=== PATIENT | female | born 1975 | race Caucasian/White ===

== ENCOUNTER 2020-06-12 11:52 | Outpatient (CLI) | payer OTHER, SELFPAY ==
--- NOTE | 2020-06-12 11:58 | MM_ITS ---
WS: [id number] SCREENING DIGITAL MAMMOGRAM WITH CAD HISTORY: SCREENING COMPARISON: None available. Bilateral CC and MLO views submitted. Computer aided detection analyzed. Breast composition: The breasts are heterogeneously dense, which may obscure small masses. Scattered ill-defined asymmetries in the LEFT breast central to the nipple and inferior and medial. These may b e superimposed fibroglandular densities which are normal. No prior studies for comparison. RIGHT ayad st is negative. MM/[place] [id number] IMPRESSION: BI-RADS: 0-Incomplete: Need additional imaging evaluation FOLLOW UP: Need Additional Imaging LEFT breast: Spot compression views (CC and MLO). True ML. Ultrasound to follow if abnormality persists.
== END 2020-06-12 11:53 | disposition home or self-care (01) ==
LOC: RADSHAW 11:57
PROVIDERS: PCP Internal Medicine; Visit Provider Internal Medicine
DX: Z12.31 Encounter for screening mammogram for malignant neoplasm of breast (principal); N64.89 Other specified disorders of breast
CPT/HCPCS: 77067

== ENCOUNTER 2020-07-18 09:48 | Outpatient (CLI) | payer OTHER, SELFPAY ==
--- NOTE | 2020-07-18 09:52 | US_ITS ---
WS: [id number] ADDITIONAL VIEWS LEFT MAMMOGRAM LEFT BREAST ULTRASOUND HISTORY: ABNORMAL MAMMOGRAM LEFT COMPARISON: 06/12/2020. LEFT MAMMOGRAM: Spot compression views and true ML. Ovoid mass measuring 11 mm near the 8-9 o'clock axis of the LEFT breast at a middle depth. No additio nal abnormalities. LEFT BREAST ULTRASOUND 2-D and color Doppler imaging submitted. Ultrasound demonstrates a subareolar nodule at 6:00 which is slightly lobulated measuring 4 x 5 x 4 m m. No increased vascularity. At 9:00 2 cm the nipple is an additional hypoechoic mass which may be fibrocystic disease measuring 1 .0 x 0.9 x 0.6 cm. This corresponds to the mammographic abnormality. US/US breast LT limited* [id number] IMPRESSION: BI-RADS: 4-Suspicious Finding-Biopsy Should Be Considered FOLLOW UP: Biopsy Recommended 1. Ultrasound-guided biopsy recommended of the 1.0 cm nodule at 9:[address] Favor this is probably fibrocystic disease but this is not a simple cyst. 2. Additional solid nodule with a maximum diameter 5 mm at 6:00. This is not v isualized mammographically. Recommend ultrasound-guided biopsy also to exclude neoplasm.
== END 2020-07-18 09:49 | disposition home or self-care (01) ==
LOC: RADSHAW 09:51
PROVIDERS: PCP Internal Medicine; Visit Provider Nurse Practitioner Family
DX: R92.8 Other abnormal and inconclusive findings on diagnostic imaging of breast (principal); N63.25 Unspecified lump in the left breast, overlapping quadrants
CPT/HCPCS: 76642; 77065

== ENCOUNTER 2020-08-01 11:59 | Outpatient (CLI) | payer OTHER, SELFPAY ==
--- NOTE | 2020-08-01 12:07 | US_ITS ---
WS: [id number] ULTRASOUND-GUIDED LEFT BREAST BIOPSY CLINICAL INFORMATION: ABNORMAL L MAMMOGRAM COMPARISON: None. FINDINGS: The procedure including risks, benefits, and complications were discussed with the patient who agreed to proceed. Using sterile technique patient was prepped and draped in the usual sterile fashion. Aft er 1% lidocaine utilizing real-time ultrasound guidance 5 14-gauge cores were obtained of the left br east lesion at the 6 o'clock position at the areola. Subsequently a titanium clip was placed in the b iopsy cavity. Next, using ultrasound guidance, the left breast lesion at the 9:00 position 2 cm from the nipple was biopsied. 5 14-gauge cores were obtained. Titanium clip was placed. No immediate applications. Pathology demonstrates A. Breast, left, mass at 6:00, ultrasound-guided biopsy: -Fibroadenoma with calcifications and benign fibrocystic changes. -No malignancy identified. B. Breast, left, mass at 9:00, ultrasound-guided biopsy: -Tubular adenosis with apocrine metaplasia and benign fibrocystic changes. -No malignancy identified. US/[place] [id number] IMPRESSION: 1. Uncomplicated ultrasound-guided left breast biopsy x2. 2. The pathology demonstrates benign fibrocystic changes at both biopsy sites. No malignancy identified. BI-RADS: 2-Benign FOLLOW UP: 1 Year Follow-up RECOMMEND RETURN TO ANNUAL SCREENING MAMMOGRAPHY.
== END 2020-08-01 12:00 | disposition home or self-care (01) ==
LOC: RAD 12:03
PROVIDERS: PCP Internal Medicine; Visit Provider Internal Medicine
DX: R92.8 Other abnormal and inconclusive findings on diagnostic imaging of breast (principal); N63.25 Unspecified lump in the left breast, overlapping quadrants; D24.2 Benign neoplasm of left breast
CPT/HCPCS: 19083; 19084; 88305

== ENCOUNTER → 2021-02-12 10:06 | Outpatient (BNVA) | payer OTHER, SELFPAY | PROVIDERS: PCP Family Medicine; Visit Provider Family Medicine | DX: E03.9 Hypothyroidism, unspecified (principal); E78.5 Hyperlipidemia, unspecified; Z13.6 Encounter for screening for cardiovascular disorders; Z79.899 Other long term (current) drug therapy | CPT/HCPCS: 80053; 80061; 84443; 85025 ==

== ENCOUNTER → 2021-02-13 13:05 | Outpatient (BNVA) | payer OTHER, SELFPAY | PROVIDERS: PCP Family Medicine; Visit Provider Family Medicine | DX: E03.9 Hypothyroidism, unspecified (principal); E78.5 Hyperlipidemia, unspecified; Z13.6 Encounter for screening for cardiovascular disorders; Z79.899 Other long term (current) drug therapy | CPT/HCPCS: 82310; 83970; 84439 ==

== ENCOUNTER → 2021-04-02 08:29 | Outpatient (BNVA) | payer OTHER, SELFPAY | PROVIDERS: PCP Family Medicine; Visit Provider Family Medicine | DX: E03.9 Hypothyroidism, unspecified (principal) | CPT/HCPCS: 84439; 84443 ==

== ENCOUNTER → 2021-07-09 08:51 | Outpatient (BNVA) | payer OTHER, SELFPAY | PROVIDERS: PCP Family Medicine; Visit Provider Family Medicine | DX: E03.9 Hypothyroidism, unspecified (principal); E78.1 Pure hyperglyceridemia | CPT/HCPCS: 80061; 83721; 84443 ==

== ENCOUNTER → 2021-07-16 10:42 | Outpatient (BNVA) | payer OTHER, SELFPAY | PROVIDERS: PCP Family Medicine; Visit Provider Family Medicine | DX: N92.0 Excessive and frequent menstruation with regular cycle (principal); E03.9 Hypothyroidism, unspecified; E78.1 Pure hyperglyceridemia | CPT/HCPCS: 87624 ==

== ENCOUNTER 2021-09-17 07:48 | Outpatient (CLI) | payer OTHER, SELFPAY ==
--- NOTE | 2021-09-17 07:56 | MM_ITS ---
WS: [id number] BILATERAL 3D TOMOSYNTHESIS DIGITAL SCREENING MAMMOGRAPHY WITH CAD CLINICAL INFORMATION: screening mammogram HISTORY: Screening mammogram. No current complaints. COMPARISON: June 12, 2020 TECHNIQUE: Bilateral CC and MLO views. FINDINGS: The breasts are composed of heterogeneous fibroglandular density tissue, which can limit the detectio n of small underlying mass lesions. Biopsy markers LEFT breast from prior biopsy August 01, 2020. A few punctate calcifications. No suspicious mass, asymmetry, calcifications, or architectural distorti on. No evidence of malignancy. MM/[place] [id number] IMPRESSION: BI-RADS: 2-Benign FOLLOW UP: 1 Year Follow-up Recommend return to annual screening mammography.
== END 2021-09-17 07:49 | disposition home or self-care (01) ==
PROVIDERS: PCP Family Medicine; Visit Provider Family Medicine
DX: Z12.31 Encounter for screening mammogram for malignant neoplasm of breast (principal)
CPT/HCPCS: 77063; 77067

== ENCOUNTER 2021-10-08 07:28 | Outpatient (CLI) | payer OTHER, SELFPAY ==
--- NOTE | 2021-10-08 08:00 | US_ITS ---
WS: [id number] TRANSABDOMINAL PELVIC AND TRANSVAGINAL PELVIC ULTRASOUND HISTORY: menorrhagia COMPARISON: None available. Uterus: 8.5 cm x 6.0 cm x 4.9 cm. Normal size anteverted uterus. Shadowing from the uterus obscuring portions of the myometrium . Fibroid suspected in the posterior myometrium measuring 1.7 x 2.0 x 2.3 cm. There is an additional fibroid measuring 1.4 x 1.4 x 2.0 cm towards the posterior inferior endome trium. Endometrium: 1.7 cm. Heterogeneous appearance of the endometrium. There is a bulbous appearance towar ds the fundus of the uterus. There are a few calcifications present. The entire endometrium appears h eterogeneous. No discrete well-formed mass. Right ovary: 2.0 cm x 1.8 cm x 1.1 cm. Poorly visualized ovary. No abnormality identified. Left ovary: 2.3 cm x 1.9 cm x 1.3 cm. Normal. No abnormality. No free fluid. US/US pelvic with transvaginal IMPRESSION: 1. Abnormal endometrium. Heterogeneous, mildly enlarged endometrium with no di screte mass. Recommend hysteroscopy and biopsy. Early endometrial neoplasm is n ot excluded. 2. Heterogeneous uterus. Several fibroids are identified.
== END 2021-10-08 07:29 | disposition home or self-care (01) ==
PROVIDERS: PCP Family Medicine; Visit Provider Family Medicine
DX: N92.0 Excessive and frequent menstruation with regular cycle (principal); D25.9 Leiomyoma of uterus, unspecified
CPT/HCPCS: 76830; 76856

== ENCOUNTER → 2022-01-14 09:45 | Outpatient (BNVA) | payer OTHER, SELFPAY | PROVIDERS: PCP Family Medicine; Visit Provider Family Medicine | DX: E78.5 Hyperlipidemia, unspecified (principal); E03.9 Hypothyroidism, unspecified; E78.1 Pure hyperglyceridemia | CPT/HCPCS: 80053; 80061; 84443; 85025 ==

== ENCOUNTER 2022-01-19 05:55 | Day surgery (SDC) | payer OTHER, SELFPAY ==
[2022-01-18 12:26] VITALS: BMI 33.0
[2022-01-19] VITALS (7 sets, daily range): BP systolic 124–147; BP diastolic 68–84; PULSE 88–95; RESP 15–18; TEMP 36.3–36.6; O2SAT 95–98
[2022-01-19] MEDS: sodium chloride 0.9% 1,000 ML 30 ML IV (06:23)
[2022-01-19 06:56] LABS: OR HCG Qualitative Urine Negative (Negative)
--- NOTE | 2022-01-19 07:01 | W.PM.OPSUD ---
Surgery/Procedure H&P Update DATE OF PROCEDURE: January 19, 2022 DATE H&P PERFORMED: 01/14/22 H&P UPDATE INFORMATION: I have reviewed H&P completed within last 30 days, I have examined patient prior to procedure and No changes to prior documentation PREOP DIAGNOSIS: AUB PLANNED PROCEDURE: Operation Date: 01/19/22 07:00 Proposed Procedures p Hysteroscopy, dilation and curettage with Myosure 87774, 62527, 07184/R93.89(Not Applicable) - Susana King MD s Dilation And Curettage (D&C)(Not Applicable) - Susana King MD Related Problem List Diagnoses (1) Thickened endometrium: (2) Menorrhagia: Qualifiers: Menorrhagia type: with regular cycle Qualified Code(s): N92.0 - Excessive and frequent menstruation with regular cycle
--- NOTE | 2022-01-19 07:48 | PM.OP ---
Operative Report Date of procedure: January 19, 2022 Pre-op diagnosis: Preop Diagnosis AUB, thickened endometrium, menorrhagia Post-op diagnosis: same Post-op findings: 9 week sized uterus with multiple fibroids present Procedure done: hysteroscopy, dilation and curettage with myosure Specimens removed/disposition: endometrial curettings to pathology Surgeon: Susana King Anesthesia: MAC Estimated blood loss (mL): 0 IV fluids (mL): 500 Urine output (mL): 200 Findings: hysteroscopy deficit 1650 ml Condition: stable Disposition: PACU Procedure: The patient was taken to the operating room where monitored anesthesia was administered and to be adequate. She was prepped and draped in the normal sterile fashion in the dorsal lithotomy position in [facility]. A weighted speculum was placed into the vagina and the anterior lip of the cervix grasped with a single-tooth tenaculum. The uterus was sounded to 9 cm. The cervix was dilated to 16 [place]. The hysteroscope was advanced into the endometrial cavity. There were multiple fibroids visualized. The MyoSure device was activated and the tissue was removed. Pictures were taken pre and post procedure. All instruments were removed. The patient tolerated the procedure well. Sponge lap and needle counts were correct x3. She was taken to the recovery room in stable condition.
--- NOTE | 2022-01-19 07:55 | PM.DCS ---
Discharge Providers Date of Discharge: January 19, 2022 Attending Provider at Discharge: Susana King MD Primary Care Provider: Ananya Hayes DO Diagnoses at Discharge Discharge Diagnosis (1) Thickened endometrium: Status: Acute (2) Menorrhagia: Status: Acute Qualifiers: Menorrhagia type: with regular cycle Qualified Code(s): N92.0 - Excessive and frequent menstruation with regular cycle Hospital Course Hospital Course The patient was admitted for surgery. She did well postoperatively and was ready for discharge. Physical Exam Urinary Catheter Management: Straight: Cath Placed During This Visit: no Discharge Data Studies Completed and Pending Pending at discharge Category Date Time Status ES surgery / GI images Routine Exams 01/19/22 06:40 Taken Pathology: Surgical [PTH] Routine Pth 01/19/22 07:54 Ordered Laboratory Results Urine HCG, Qual Negative (Negative) 01/19/22 06:55 Vitals Last Vital Signs Temp 97.4 F L 01/19/22 06:05 Pulse 95 01/19/22 06:05 Resp 18 01/19/22 06:05 BP 147/84 01/19/22 06:05 Pulse Ox 97 01/19/22 06:05 Discharge Plan Discharge Patient Disposition: Home Condition: Stable Prescriptions: Continued melatonin 5 mg capsule 5 mg PO 1XD 0RF omega-3 fatty acids [Fish Oil Concentrate] 1,000 mg capsule 1,000 mg PO DAILY 0RF levothyroxine 50 mcg tablet 50 mcg PO .COMPLEX 30 Days Qty: 30 6RF Rx Instructions: 50 mcg PO 1 tab tue, thurs, sat, sun; Please disregard old rx levothyroxine [Euthyrox] 25 mcg tablet See Rx Instructions .ROUTE .COMPLEX Qty: 30 3RF Dose Instruction: TAKE 1 TABLET BY MOUTH ONCE DAILY ON Tuesday AND TUESDAY Rx Instructions: TAKE 1 TABLET BY MOUTH ONCE DAILY ON Tuesday AND TUESDAY Please disregard old rx atorvastatin 20 mg tablet See Rx Instructions .ROUTE .COMPLEX Qty: 90 1RF Dose Instruction: TAKE 1 TABLET BY MOUTH DAILY Rx Instructions: TAKE 1 TABLET BY MOUTH DAILY norgestimate-ethinyl estradiol [Tri-Linyah] 0.18/0.215/0.25 mg-35 mcg (28) tablet See Rx Instructions .ROUTE .COMPLEX Qty: 84 0RF Dose Instruction: TAKE 1 TABLET BY MOUTH DAILY Rx Instructions: TAKE 1 TABLET BY MOUTH DAILY fenofibrate nanocrystallized [Tricor] 145 mg tablet 145 mg PO DAILY Qty: 90 1RF Discharge Orders: Discharge Order (Routine); Ordered 01/19/22 Ordered By: Susana King Discharge Attestations Time Spent in Discharge Care*: less than 30 min Quality Metrics Clinical Quality Measures [ No reported AMI, CVA or VTE this stay] Coding Level of Care Code Acute Chg FW DC note Diagnoses Thickened endometrium R93.89 Menorrhagia N92.0 Menorrhagia type: with regular cycle
--- NOTE | 2022-01-19 16:24 | ANE.PACU2 ---
Inpatient post-anesthesia follow up: Airway intact: Yes Vital signs: Temperature 97.7 F Pulse Rate 88 Respiratory Rate 18 Blood Pressure 125/84 Pulse Oximetry 98 Oxygen Delivery Me thod Room Air Oxygen Flow Rate Fraction of Inspir ed Oxygen Hydration adequate: Yes Nausea and vomiting: No Pain level: 3 Mental status: Baseline
== END 2022-01-19 08:45 | disposition home or self-care (01) ==
PROVIDERS: Anesthesiology; PCP Family Medicine; Visit Provider Obstetrics & Gynecology
PROC: 0UDB8ZZ Extraction of Endometrium, Via Natural or Artificial Opening Endoscopic (ICD-10-PCS; CPT 58558; principal; 2022-01-19 07:00)
PROC: (CPT 58120; 2022-01-19 07:00)
DX: R93.89 Abnormal findings on diagnostic imaging of other specified body structures (principal); N92.0 Excessive and frequent menstruation with regular cycle; E87.1 Hypo-osmolality and hyponatremia; E78.5 Hyperlipidemia, unspecified; E03.9 Hypothyroidism, unspecified
CPT/HCPCS: 58558; 81025; 84703; 88305; J1100; J1200; J2250; J2405; J2704; J3010; J7030

== ENCOUNTER 2022-06-22 12:34 | Observation (INO) | payer OTHER, SELFPAY ==
[2022-06-17 08:51] VITALS: BMI 32.8
--- NOTE | 2022-06-17 09:05 | ANES.PREANE2 ---
Pre-Anesthetic Assessment Height/Weight: Height 1.7 m Weight 95.254 kg Preop Diagnosis: AUB Operation Date: 06/22/22 10:00 Proposed Procedures p Laparoscopic assisted vaginal hysterectomy, bilateral salpingectomy 59530,N80.0(Not Applicable) - Susana King MD s Laparoscopic Salpingectomy(Bilateral) - Susana King MD Familial anesthetic complications: A bit combative while falling asleep - thinks versed will help Social No alcohol and No tobacco Exam alert, oriented x 3, clear to auscultation bilaterally and regular rate & rhythm Airway Mallampati: Class I Dentition: full Pulmonary None reported CV/HEM None reported None reported Hepatic None reported GI None reported Metabolic Hyperlipidemia and Thyroid Disease Anesthetic Plan ASA status: 2 Anesthesia: General Risk of > 500 ml blood loss (7ml/kg in children): No Medications/Allergies Home Medications Medication Instructions Recorded Confirmed Last Taken Type omega-3 fatty acids 1,000 mg 1,000 mg PO DAILY 01/01/21 06/17/22 04/18/22 History capsule (Fish Oil Concentrate) levothyroxine 50 mcg tablet 50 mcg PO .COMPLEX 30 days #30 tabs 07/16/21 06/17/22 06/17/22 Rx fenofibrate nanocrystallized 145 145 mg PO DAILY #90 tabs 01/13/22 06/17/22 06/16/22 Rx mg tablet (Tricor) melatonin 5 mg capsule 5 mg PO 1XD PRN Sleep 01/28/22 06/17/22 Unknown History levothyroxine 25 mcg tablet See Rx Instructions .Route 05/13/22 06/17/22 06/16/22 Rx (Euthyrox) .COMPLEX #30 tabs norgestimate-ethinyl estradiol 1 tab PO DAILY #28 tabs 06/04/22 06/17/22 06/16/22 Rx 0.18 mg/0.215mg/0.25mg-35 mcg(28)tablet (Tri-Linyah) atorvastatin 20 mg tablet 20 mg PO BEDTIME 06/17/22 06/17/22 06/16/22 History Allergies Allergy/AdvReac Type Severity Reaction Status Date / Time No Known Allergies Allergy Verified 03/12/22 15:22 [facility] Anesthesia Medical History Allergic rhinitis due to allergen Dizziness Dyslipidemia History of ovarian cyst Hypothyroidism Surgical History History of breast biopsy Hx of appendectomy Hx of removal of cyst Family History Mother Thyroid disease Grandmother No problems noted. Grandfather Colon cancer maternal Denies family history of Cervical cancer Ovarian cancer Prostate cancer Diabetes Heart disease Hyperlipidemia Breast cancer Bleeding disorder Hypertension Uterine cancer Stroke Social History Smoking and tobacco status: never smoked Female Reproductive History Date of last menstrual period: 06/10/22 Data Anesthesia Cardiac Studies: No Data to Display
[2022-06-17 10:31] LABS: Basophils % 0.2 %; Eosinophils # 0.1 10^3/uL (0.0-0.8); Hematocrit 40.5 % (37.0-47.0); Hemoglobin 13.5 g/dL (11.5-15.3); Lymphocytes # 1.3 10^3/uL (0.8-4.8); Lymphocytes % 32.2 %; Mean Corpuscular HGB Conc 33.3 g/dL (30.0-36.0); Mean Corpuscular Hemoglobin 30.1 pg (28.0-34.0); Mean Corpuscular Volume 90.4 fl (81-99); Mean Platelet Volume 11.8 fL (7.4-10.4); Monocytes # 0.4 10^3/uL (0.2-0.9); Monocytes % 10.5 %; Neutrophils # 2.21 10^3/uL (1.8-7.7); Neutrophils % 55.1 %; Nucleated Red Blood Cells % 0 %; Platelet Count 206 10^3/cmm (130-400); Red Blood Count 4.48 10^6/uL (4.1-5.3); Red Cell Distribution Width 11.9 % (12.1-15.1)
[2022-06-17 10:57] LABS: Anion Gap 12.7 (5-19); Blood Urea Nitrogen 8 mg/dL (6-20); Calcium 8.8 mg/dL (8.5-10.5); Carbon Dioxide 25 mmol/L (22-29); Chloride 103 mmol/L (98-107); Glomerular Filtration Rate 131.7 mL/min (90-130); Glucose 81 mg/dL (65-115); Osmolality Calculated 281 mOsm/kg (285-295); Potassium 3.7 mmol/L (3.5-5.1); Sodium 137 mmol/L (136-145)
[2022-06-22] VITALS (22 sets, daily range): BP systolic 120–143; BP diastolic 68–92; PULSE 72–98; RESP 16–18; TEMP 36.1–36.7; O2SAT 92–99; BMI 32.8
[2022-06-22] MEDS: phenazopyridine 100 mg Tablet 200 MG PO (08:51)
[2022-06-22] MEDS: gabapentin 300 mg Capsule PO (08:51)
[2022-06-22] MEDS: scopolamine 1.5 Patch 1 PATCH TRANSDERMA (08:52)
[2022-06-22] MEDS: CELEcoxib 200 mg Capsule 400 MG PO (08:52)
[2022-06-22] MEDS: acetaminophen 1,000 MG/100 ML PIGGYBACK 400 MG IV (08:53)
[2022-06-22] MEDS: sodium chloride 0.9% 1,000 ML 30 ML IV (08:58)
[2022-06-22 09:03] LABS: OR HCG Qualitative Urine Negative (Negative)
--- NOTE | 2022-06-22 09:15 | W.PM.OPSUD ---
Surgery/Procedure H&P Update DATE OF PROCEDURE: June 22, 2022 DATE H&P PERFORMED: 06/17/22 H&P UPDATE INFORMATION: I have reviewed H&P completed within last 30 days, I have examined patient prior to procedure and No changes to prior documentation PREOP DIAGNOSIS: uterine prolapse, thickened endometrium, fibroids, adenomyosis PLANNED PROCEDURE: Operation Date: 06/22/22 09:55 Proposed Procedures p Laparoscopic assisted vaginal hysterectomy, bilateral salpingectomy 67249,N80.0(Not Applicable) - Susana King MD s Laparoscopic Salpingectomy(Bilateral) - Susana King MD Related Problem List Diagnoses (1) Adenomyosis: (2) Uterine prolapse: (3) Thickened endometrium:
--- NOTE | 2022-06-22 09:32 | P.ANESUD_ITS ---
Pre-Anesthetic Update Pre-Anesthetic Assessment: Date of Surgery/Procedure: 06/22/22 Preop Joanna gnosis: uterine prolapse, thickened endometrium, fibroids, adenomyosis Proposed Procedure: Operation Date: 06/22/22 09:55 Proposed Procedures p Laparoscopic assisted vaginal hysterectomy, bilateral salpingectomy 15382,N80.0(Not Applicable) - Susana King MD s Laparoscopic Salpingectomy(Bilateral) - Susana King MD Any changes to Pre-Anesthetic Assessment?: No Last Intake: Intake Last Liquid Date 06/21/22 Last Liquid Time 17:30 Last Solid Date 06/21/22 Last Solid Time 17:30 Labs Last 48hrs: Blood Bank 06/22/22 08:40 Blood Type O Positive Rho(D) Type Positive Antibody Screen Negative Vitals: Temperature 97.9 F 06/22/22 08:48 Temperature Source Temporal Artery S can 06/22/22 08:48 Pulse Rate 96 06/22/22 08:48 Pulse Rhythm 06/22/22 08:33 Pulse Strength 3+ Normal 06/22/22 08:33 Respiratory Rate 18 06/22/22 08:48 Blood Pressure 137/85 06/22/22 08:48 Blood Pressure Rochelle n 102 06/22/22 08:48 Pulse Oximetry 96 06/22/22 08:48 Oxygen Delivery Me thod 06/22/22 08:48 Exam: Pre-Anes Outpt Exam: alert, oriented x 3, clear to auscultation bilaterally and regular rate & rhythm Cardiac Studies: No Data to Display
[2022-06-22] MEDS: ceFAZolin 2,000 MG in sodium chloride 0.9% (plus) 50 ML 100 MG IV ×2 (09:43→18:35)
[2022-06-22] MEDS: vasopressin 20 unit/mL INJ 4 UNIT INJECTION (10:44)
--- NOTE | 2022-06-22 12:34 | PM.OP ---
Operative Report Date of procedure: June 22, 2022 Pre-op diagnosis: Preop Diagnosis uterine prolapse, thickened endometrium, fibroids, adenomyosis Post-op diagnosis: same Post-op findings: enlarged uterus with moderate adhesions of bowel, ovary and tube on the right to uterus Procedure done: lavh, bilateral salpingectomy Specimens removed/disposition: uterus and bilateral fallopian tubes to pathology Surgeon: Susana King Anesthesia: General Estimated blood loss (mL): 200 IV fluids (mL): 1,300 Urine output (mL): 150 Complications: none Condition: stable Disposition: PACU Procedure: The patient was taken to the operating room where general anesthesia was administered and found to be adequate. She was prepped and draped in the normal sterile fashion in the dorsal lithotomy position in [facility]. A Pierre catheter was placed. A weighted speculum was placed into the vagina and the anterior lip of the cervix was grasped with a single tooth tenaculum. The Zumi uterine manipulator was placed. The weighted speculum was removed. The gloves were changed and attention was turned to the abdomen. A 5 mm supraumbilical incision was made. Using a 5 mm port with the camera, the port was placed into the abdomen. The abdomen was insufflated. Two low, lateral 5 mm ports were placed on the left and right under direct visualization from the camera. The left tube was grasped and elevated. Using the laparoscopic cautery, the mesosalpinx was divided between the ovary and tube. The tube was removed. On the right, there were moderate adhesions of the adnexae and bowel to the uterus. The adhesions were taken down with the scissors and cautery. There was only a portion of the fimbria of the fallopian tube on the right. There was no other tube present. There was good hemostasis. The uteroovarian ligaments as well as the round ligaments were ligated. Attention was then turned to the vaginal portion of the procedure. The weighted speculum was placed into the vagina. The zumi manipulator was removed. The single tooth tenaculum was removed and replaced with the argenis's tenaculum. 10 mL of dilute Pitressin was injected at the vesicovaginal junction. A circumferential incision was made at the vesicovaginal junction and the vaginal mucosa reflected cephalad. The posterior peritoneum was entered sharply with the Metzenbaum scissors and the long weighted speculum replaced. Using the Eulalia clamps the uterosacral ligaments were clamped cut and suture-ligated. The anterior peritoneum was entered sharply with the metzenbaum scissors. Then sequentially the uterine arteries and cardinal ligaments were clamped cut and suture-ligated. A single-tooth tenaculum was used to deliver the uterus. The remaining segement of the utero-ovarian ligaments were clamped cut and suture-ligated bilaterally and the specimen was removed. There was good hemostasis with only mild bleeding from the cuff. The peritoneum was closed with a pursestring using 2-0 Vicryl. The vaginal cuff was closed with 0 Vicryl in a running locked pattern incorporating the uterosacral ligaments into the lateral aspects of the vaginal cuff. The Pierre catheter was removed and the cystoscope advanced into the bladder. The patient was given pyridium and bilateral spill was noted. There were no injuries or deficits noted in the bladder. The cystoscope was removed and the Pierre was replaced. Vaginal packing was placed for good hemostasis. The gloves and gowns were changed and attention was turned to the abdomen. A second look showed excellent hemostasis of all pedicles. The trocars were removed and the abdomen de-sufflated. The ports were closed with 2-0 monocryl with skin glue. The patient tolerated the procedure well. Sponge lap and needle counts were correct x3. She was taken to the recovery room in stable condition.
[2022-06-22] MEDS: ketorolac 30 mg/mL INJ IVP ×2 (14:40→21:35)
[2022-06-22] MEDS: dextrose 5%-lactated ringers 1,000 ML 125 ML IV ×2 (14:40→21:39)
--- NOTE | 2022-06-22 14:44 | ANE.PACU2 ---
Inpatient post-anesthesia follow up: Airway intact: Yes Vital signs: Temperature 97.2 F Pulse Rate 78 Respiratory Rate 18 Blood Pressure 130/84 Pulse Oximetry 96 Oxygen Delivery Me thod Nasal Cannula Oxygen Flow Rate 2 Fraction of Inspir ed Oxygen Hydration adequate: Yes Nausea and vomiting: No Pain level: 3 Mental status: Baseline
--- NOTE | 2022-06-22 14:46 | PC.NURSE ---
o2 sat 92% without o2 when she got here [place] so o2 placed at 2 liters per nasal cannula.
[2022-06-22] MEDS: docusate sodium 100 mg Capsule PO (17:33)
[2022-06-23 00:20] VITALS: BP 95/51; PULSE 75; RESP 18; TEMP 37.2; O2SAT 95
[2022-06-23] MEDS: ceFAZolin 2,000 MG in sodium chloride 0.9% (plus) 50 ML 100 MG IV (01:31)
[2022-06-23] MEDS: ketorolac 30 mg/mL INJ IVP (02:38)
[2022-06-23 02:45] VITALS: BP 102/84; PULSE 76; RESP 18; TEMP 37.1; O2SAT 96
[2022-06-23 04:30] VITALS: BP 107/66; PULSE 87; RESP 17; TEMP 37.4; O2SAT 97
--- NOTE | 2022-06-23 04:54 | PC.NURSE ---
patient was helped out of bed and walked one lap around the OB [facility]. She denies pain at this time. She denies shortness of breath at this time. She was then helped into the chair in her room and is now watching TV.
--- NOTE | 2022-06-23 05:32 | PC.NURSE ---
Vaginal packing removed at this time. Patient tolerated procedure well.
[2022-06-23 05:39] LABS: Hematocrit 32.5 % (37.0-47.0); Hemoglobin 10.8 g/dL (11.5-15.3); Mean Corpuscular HGB Conc 33.2 g/dL (30.0-36.0); Mean Corpuscular Hemoglobin 30.2 pg (28.0-34.0); Mean Corpuscular Volume 90.8 fl (81-99); Mean Platelet Volume 11.9 fL (7.4-10.4); Platelet Count 149 10^3/cmm (130-400); Red Blood Count 3.58 10^6/uL (4.1-5.3); White Blood Count 9.2 10^3/uL (4.0-10.0)
--- NOTE | 2022-06-23 09:15 | PM.DCS ---
Discharge Providers Date of Admission: 06/22/22 12:34 Date of Discharge: June 23, 2022 Attending Provider at Admission: Susana King MD Attending Provider at Discharge: Susana King MD Primary Care Provider: Ananya Hayes DO Diagnoses at Discharge Discharge Diagnosis (1) Adenomyosis: Status: Acute (2) Uterine prolapse: Status: Acute (3) Thickened endometrium: Status: Acute Reason for Visit Reason for Visit: endometriosis of uterus Hospital Course Hospital Course The patient was admitted for surgery. She did well postoperatively and was ready for discharge on day #1 Physical Exam Narrative: The patient is doing well this morning. She is ambulating, tolerating a regular diet and urinating without problems. She reports scant vaginal bleeding. Const: COMMON NORMALS: no acute distress, patient oriented x3, no limitations, healthy appearing, alert and well nourished GENERAL APPEARANCE: cooperative, comfortable, well kempt and well developed ORIENTATION/CONSCIOUSNESS: Yes awake, Yes oriented to person, Yes oriented to place and Yes oriented to time Resp: COMMON NORMALS: normal respiratory effort EFFORT & INSPECTION: Yes able to speak in complete sentences GI: COMMON NORMALS: Soft to palpation and non-tender PALPATION: Yes Soft to palpation Extremity: COMMON NORMALS: no calf tenderness Neuro: COMMON NORMALS: patient oriented x3 SENSORIUM/ORIENTATION: Yes alert, Yes oriented to person, Yes oriented to place and Yes oriented to time Psych: APPEARANCE: Yes well kempt Urinary Catheter Management: Pierre: Cath Placed During This Visit: yes, but has since been removed by the nurse Reason for Continuing Indwelling Catheter: Decision to DC Catheter Urinary Catheter Date of Insertion: 06/22/22 Urinary Catheter Time of Insertion: 10:13 Date Urinary Catheter Removed: 06/23/22 Time Urinary Catheter Discontinued: 05:33 Discharge Data Studies Completed and Pending Pending at discharge Category Date Time Status ES surgery / GI images Routine Exams 06/22/22 Taken Urine Culture Routine Lab 06/22/22 10:13 Received Pathology: Surgical [PTH] Routine Pth 06/22/22 12:45 Received Laboratory Results WBC 9.2 10^3/uL (4.0-10.0) 06/23/22 05:25 RBC 3.58 10^6/uL (4.1-5.3) L 06/23/22 05:25 Hgb 10.8 g/dL (11.5-15.3) L 06/23/22 05:25 Hct 32.5 % (37.0-47.0) L 06/23/22 05:25 MCV 90.8 fl (81-99) 06/23/22 05:25 MCH 30.2 pg (28.0-34.0) 06/23/22 05:25 MCHC 33.2 g/dL (30.0-36.0) 06/23/22 05:25 RDW 12.0 % (12.1-15.1) L 06/23/22 05:25 Plt Count 149 10^3/cmm (130-400) 06/23/22 05:25 MPV 11.9 fL (7.4-10.4) H 06/23/22 05:25 Neut % (Auto) 55.1 % 06/17/22 10:17 Lymph % (Auto) 32.2 % 06/17/22 10:17 [place] % (Auto) 10.5 % 06/17/22 10:17 Eos % (Auto) 2.0 % 06/17/22 10:17 Baso % (Auto) 0.2 % 06/17/22 10:17 Neut # (Auto) 2.21 10^3/uL (1.8-7.7) 06/17/22 10:17 Lymph # (Auto) 1.3 10^3/uL (0.8-4.8) 06/17/22 10:17 [place] # (Auto) 0.4 10^3/uL (0.2-0.9) 06/17/22 10:17 Eos # (Auto) 0.1 10^3/uL (0.0-0.8) 06/17/22 10:17 Baso # (Auto) 0.0 10^3/uL (0.0-0.1) 06/17/22 10:17 Nucleated RBC % (auto) 0 % 06/17/22 10:17 Nucleated RBCs # 0.0 /100WBC 06/17/22 10:17 Sodium 137 mmol/L (136-145) 06/17/22 10:17 Potassium 3.7 mmol/L (3.5-5.1) 06/17/22 10:17 Chloride 103 mmol/L (98-107) 06/17/22 10:17 Carbon Dioxide 25 mmol/L (22-29) 06/17/22 10:17 Anion Gap 12.7 (5-19) 06/17/22 10:17 BUN 8 mg/dL (6-20) 06/17/22 10:17 Creatinine 0.5 mg/dL (0.5-0.9) 06/17/22 10:17 GFR Calculation 131.7 mL/min (90-130) H 06/17/22 10:17 Glucose 81 mg/dL (65-115) 06/17/22 10:17 Calculated Osmolality 281 mOsm/kg (285-295) L 06/17/22 10:17 Calcium 8.8 mg/dL (8.5-10.5) 06/17/22 10:17 Urine HCG, Qual Negative (Negative) 06/22/22 09:02 Blood Type O Positive 06/22/22 08:40 Rho(D) Type Positive 06/22/22 08:40 Antibody Screen Negative 06/22/22 08:40 Vitals Last Vital Signs Temp 99.4 F 06/23/22 04:30 Pulse 87 06/23/22 04:30 Resp 17 06/23/22 04:30 BP 107/66 06/23/22 04:30 Pulse Ox 97 06/23/22 04:30 O2 Del Method 06/23/22 04:30 O2 Flow Rate 2 06/22/22 15:50 Discharge Plan Discharge Patient Disposition: Home Condition: Stable Prescriptions: New docusate sodium 100 mg Capsule 100 mg PO BID Qty: 60 0RF ibuprofen 800 mg Tablet 800 mg PO Q8H Qty: 60 0RF hydrocodone-acetaminophen 5-325 mg Tablet 1 tab PO Q4H PRN (Reason: Moderate To Severe Pain) Qty: 14 0RF Continued omega-3 fatty acids [Fish Oil Concentrate] 1,000 mg capsule 1,000 mg PO DAILY melatonin 5 mg capsule 5 mg PO 1XD PRN (Reason: Sleep) levothyroxine 50 mcg tablet 50 mcg PO .COMPLEX 30 Days Qty: 30 6RF Rx Instructions: 50 mcg PO 1 tab tue, thurs, sat, sun; Please disregard old rx fenofibrate nanocrystallized [Tricor] 145 mg tablet 145 mg PO DAILY Qty: 90 1RF levothyroxine [Euthyrox] 25 mcg tablet See Rx Instructions .ROUTE .COMPLEX Qty: 30 3RF Dose Instruction: TAKE 1 TABLET BY MOUTH ONCE DAILY ON Tuesday AND TUESDAY Rx Instructions: TAKE 1 TABLET BY MOUTH ONCE DAILY ON Tuesday AND TUESDAY norgestimate-ethinyl estradiol [Tri-Linyah] 0.18/0.215/0.25 mg-35 mcg (28) tablet 1 tab PO DAILY Qty: 28 0RF atorvastatin 20 mg tablet 20 mg PO BEDTIME Discharge Orders: Discharge Order (Routine); Ordered 06/23/22 Ordered By: Susana King Referrals: Susana King MD [Physician] - 07/01/22 2:45 pm (1 week post-op: 07/01/22 2:45 6 week post-op: 08/05/22 10:15) Patient Instructions: Laparoscopic Hysterectomy (DC), OB Discharge Report, OB Food/Drug Interaction Guide, Opioid Safety, Post Operative Pain Discharge Attestations Time Spent in Discharge Care*: less than 30 min Quality Metrics Clinical Quality Measures [ No reported AMI, CVA or VTE this stay] Coding Level of Care Code Acute Chg FW DC note Diagnoses Adenomyosis N80.03 Uterine prolapse N81.4 Thickened endometrium R93.89
[2022-06-23 09:45] VITALS: BP 114/68; PULSE 74; RESP 16; TEMP 36.8
[2022-06-23 10:10] VITALS: BP 114/68; PULSE 74; RESP 16; TEMP 36.8
== END 2022-06-23 10:10 | disposition home or self-care (01) ==
LOC: OBGYN 12:34
PROVIDERS: Admitting Provider Obstetrics & Gynecology; PCP Family Medicine; Visit Provider Obstetrics & Gynecology
PROC: 0UT9FZZ Resection of Uterus, Via Natural or Artificial Opening With Percutaneous Endoscopic Assistance (ICD-10-PCS; CPT 58552; principal; 2022-06-22 09:55)
PROC: (CPT 58661; 2022-06-22 09:55)
DX: N81.4 Uterovaginal prolapse, unspecified (principal); R93.89 Abnormal findings on diagnostic imaging of other specified body structures; N80.03 Adenomyosis of the uterus; K66.0 Peritoneal adhesions (postprocedural) (postinfection); E78.5 Hyperlipidemia, unspecified; E03.9 Hypothyroidism, unspecified
CPT/HCPCS: 58552; 36415; 80048; 81025; 84703; 85025; 85027; 86850; 86900; 87086; 88305; G0378; J0131; J0690; J1100; J1170; J1200; J1885; J2250; J2405; J2704; J3010; J3490; J7030; J7121

== ENCOUNTER → 2022-07-15 11:11 | Outpatient (BNVA) | payer OTHER, SELFPAY | PROVIDERS: PCP Family Medicine; Visit Provider Family Medicine | DX: E03.9 Hypothyroidism, unspecified (principal) | CPT/HCPCS: 84439; 84443 ==

== ENCOUNTER 2022-09-24 12:49 | Outpatient (CLI) | payer OTHER, SELFPAY ==
--- NOTE | 2022-09-24 13:15 | MM_ITS ---
WS: [id number] BILATERAL SCREENING DIGITAL TOMOSYNTHESIS MAMMOGRAM WITH CAD HISTORY: SCREEN COMPARISON: 09/17/2021, 09/11/2019 Bilateral CC and MLO views with tomosynthesis and synthetic mammography submitted. Computer aided det ection analyzed. Breast composition: There are scattered areas of fibroglandular density. Focal asymmetry mid RIGHT ML O projection above the nipple line. Otherwise benign calcifications. MM/[id number] IMPRESSION: BI-RADS: 0-Incomplete: Need additional imaging evaluation FOLLOW UP: Need Additional Imaging RIGHT breast: Spot compression views (MLO). True ML. Ultrasound to follow if ab normality persists.
== END 2022-09-24 12:50 | disposition home or self-care (01) ==
LOC: RAD 12:51
PROVIDERS: PCP Family Medicine; Visit Provider Family Medicine
DX: Z12.31 Encounter for screening mammogram for malignant neoplasm of breast (principal)
CPT/HCPCS: 77063; 77067

== ENCOUNTER 2022-10-15 08:16 | Outpatient (CLI) | payer OTHER, SELFPAY ==
--- NOTE | 2022-10-15 08:30 | MM_ITS ---
WS: [id number] ADDITIONAL VIEWS RIGHT MAMMOGRAM WITH DIGITAL BREAST TOMOSYNTHESIS. RIGHT BREAST ULTRASOUND HISTORY: Abnormal finding screening mammogram. COMPARISON: 09/24/2022, 09/17/2021 RIGHT MAMMOGRAM: Spot compression views and true ML with digital breast tomosynthesis and SM. Asymmetry on the RIGHT MLO projection nearly completely resolves with additional imaging. Much improv ed appearance of the asymmetry. Ultrasound will also be performed at 10:00 and 2:[address] to ensure there is no underlying subtle abnormality. RIGHT BREAST ULTRASOUND 2-D and color Doppler imaging submitted. No suspicious findings are noted within the RIGHT breast at 10:00 or 2:00. No masses or shadowing. MM/[place] [id number] IMPRESSION: BI-RADS: 2-Benign FOLLOW UP: 1 Year Follow-up
--- NOTE | 2022-10-15 09:00 | US_ITS ---
WS: [id number] ADDITIONAL VIEWS RIGHT MAMMOGRAM WITH DIGITAL BREAST TOMOSYNTHESIS. RIGHT BREAST ULTRASOUND HISTORY: Abnormal finding screening mammogram. COMPARISON: 09/24/2022, 09/17/2021 RIGHT MAMMOGRAM: Spot compression views and true ML with digital breast tomosynthesis and SM. Asymmetry on the RIGHT MLO projection nearly completely resolves with additional imaging. Much improv ed appearance of the asymmetry. Ultrasound will also be performed at 10:00 and 2:[address] to ensure there is no underlying subtle abnormality. RIGHT BREAST ULTRASOUND 2-D and color Doppler imaging submitted. No suspicious findings are noted within the RIGHT breast at 10:00 or 2:00. No masses or shadowing. US/US breast RT limited* [id number] IMPRESSION: BI-RADS: 2-Benign FOLLOW UP: 1 Year Follow-up
== END 2022-10-15 08:17 | disposition home or self-care (01) ==
LOC: RAD 08:20
PROVIDERS: PCP Family Medicine; Visit Provider Family Medicine
DX: R92.8 Other abnormal and inconclusive findings on diagnostic imaging of breast (principal)
CPT/HCPCS: 76642; 77061; G0279

== ENCOUNTER → 2023-01-13 09:08 | Outpatient (BNVA) | payer OTHER, SELFPAY | PROVIDERS: PCP Family Medicine; Visit Provider Family Medicine | DX: E03.9 Hypothyroidism, unspecified (principal); E78.5 Hyperlipidemia, unspecified | CPT/HCPCS: 80053; 80061; 84439; 84443; 85025 ==

== ENCOUNTER → 2023-07-28 10:26 | Outpatient (BNVA) | payer OTHER, SELFPAY | PROVIDERS: Visit Provider Family Medicine | DX: E03.9 Hypothyroidism, unspecified (principal) | CPT/HCPCS: 84439; 84443 ==

== ENCOUNTER 2023-11-17 11:01 | Outpatient (CLI) | payer OTHER, SELFPAY ==
--- NOTE | 2023-11-17 11:13 | MM_ITS ---
WS: [id number] Bilateral screening 3D tomosynthesis digital mammogram, 11/17/2023 Clinical Data: SCREENING Comparison: 10/15/2022, 09/24/2022, 09/17/2021, 07/18/2020, 06/12/2020. Findings: The breast parenchymal pattern shows heterogeneous density. No spiculated masses or clustered calcifi cations are seen. There are no secondary signs of carcinoma. There are biopsy clips in the left breas t. There are mole markers on both breasts. MM/[id number] Impression: 1. Negative bilateral mammogram unchanged. 2. Recommend annual screening mammograms. BIRADS: 1-Negative FOLLOW UP: 1 Year Follow-up The CAD finished cloth checker was used.
== END 2023-11-17 11:02 | disposition home or self-care (01) ==
LOC: RAD 11:02
PROVIDERS: PCP Family Medicine; Visit Provider Family Medicine
DX: Z12.31 Encounter for screening mammogram for malignant neoplasm of breast (principal)
CPT/HCPCS: 77063; 77067

== ENCOUNTER → 2024-02-03 08:58 | Outpatient (BNVA) | payer OTHER, SELFPAY | PROVIDERS: PCP Family Medicine; Visit Provider Family Medicine | DX: E78.1 Pure hyperglyceridemia (principal); E03.9 Hypothyroidism, unspecified | CPT/HCPCS: 80061; 84439; 84443 ==

== ENCOUNTER 2024-11-23 13:06 | Outpatient (CLI) | payer OTHER, SELFPAY ==
--- NOTE | 2024-11-23 13:09 | MM_ITS ---
WS: [id number] BILATERAL 3D TOMOSYNTHESIS DIGITAL SCREENING MAMMOGRAPHY WITH CAD CLINICAL INFORMATION: SCREENING HISTORY: Screening mammogram. No current complaints. COMPARISON: 2023 TECHNIQUE: Bilateral CC and MLO views. FINDINGS: The breasts are composed of heterogeneous fibroglandular density tissue, which can limit the detection of small underlying mass lesions. No suspicious mass, asymmetry, calcifications, or architectural distortion. No evidence of malignancy. Biopsy clips LEFT breast. Benign calcification RIGHT breast. MM/MM [facility] tomosynthesis [id number] IMPRESSION: DENSITY: The breasts are heterogeneously dense, which may obscure small masses. BI-RADS: 2 - Benign FOLLOW UP: 1 Year Follow-up Recommend return to annual screening mammography.
== END 2024-11-23 13:07 | disposition home or self-care (01) ==
PROVIDERS: PCP Family Medicine; Visit Provider Family Medicine
DX: Z12.31 Encounter for screening mammogram for malignant neoplasm of breast (principal); R92.333 Mammographic heterogeneous density, bilateral breasts; R92.1 Mammographic calcification found on diagnostic imaging of breast
CPT/HCPCS: 77063; 77067

== ENCOUNTER → 2025-01-25 09:28 | Outpatient (BNVA) | payer OTHER, SELFPAY | PROVIDERS: PCP Family Medicine; Visit Provider Family Medicine | DX: E78.5 Hyperlipidemia, unspecified (principal); E03.9 Hypothyroidism, unspecified | CPT/HCPCS: 80053; 80061; 84443 ==